=== PATIENT | male | born 1950 | race Caucasian/White ===

== ENCOUNTER 2022-11-29 14:11 | Outpatient (REF) | payer MEDICARE, OTHER, SELFPAY ==
[2022-11-29 15:08] LABS: Influenza A PCR NEGATIVE (Negative); Influenza B PCR NEGATIVE (Negative); Resp Syncy Virus RNA Qual PCR NEGATIVE (Negative); SARS COV2 PCR INHOUSE POSITIVE (Negative)
== END 2022-11-29 14:12 | disposition home or self-care (01) ==
LOC: HO.LNP 14:11
PROVIDERS: Visit Provider Physician Assistant
DX: Z20.822 Contact with and (suspected) exposure to COVID-19 (principal); B34.9 Viral infection, unspecified
CPT/HCPCS: 0241U

== ENCOUNTER 2024-12-24 16:03 | Emergency (ER) | payer MEDICARE, SELFPAY ==
--- NOTE | ~2024-12-24 | CT_ITS ---
CLINICAL HISTORY: fall CT cervical spine without contrast. COMPARISON: None FINDINGS: Normal vertebral body alignment. Grade 1 anterolisthesis of C3 on C4, degenerative. Nuchal ligament ossification. Skull base and intracranial structures appear normal. Apical pleural thickening present bilaterally. C2-C3: Anterior marginal osteophytes. C3-C4: Anterior marginal osteophytes. Uncovertebral joint hypertrophy. Facet joint arthrosis. Mild bilateral neural foraminal narrowing. C4-C5: Anterior marginal osteophytes. Uncovertebral joint hypertrophy. Mild bilateral neural foraminal narrowing. C5-C6: Anterior marginal osteophytes. Uncovertebral joint hypertrophy. Severe bilateral neural foraminal narrowing. C6-C7: Anterior marginal osteophytes. Posterior disc osteophyte complex. Uncovertebral joint hypertrophy. [id number] bilateral neural foraminal narrowing. IMPRESSION: 1. No evidence of acute injury to the cervical spine. 2. Grade 1 anterolisthesis of C3 on C4, degenerative. 3. Moderate to advanced multilevel cervical spondylosis. This document has been electronically signed by: Mark Ma MD on 12/24/2024 18:46:19
--- NOTE | ~2024-12-24 | CT_ITS ---
CLINICAL HISTORY: fall CT head without contrast. COMPARISON: None FINDINGS: Mild mucosal thickening present within the left maxillary sinus. Mastoid air cells are clear. No calvarial fracture. Atherosclerotic intracranial vasculature. No evidence for mass or mass effect. No intracranial hemorrhage or abnormal extra-axial fluid collection. Basal ganglia mineralization present bilaterally. No evidence of hydrocephalus. The basilar cisterns are patent. There are periventricular areas of low attenuation compatible with mild white matter small vessel disease. Posterior fossa appears unremarkable. IMPRESSION: 1. No acute intracranial findings. This document has been electronically signed by: Mark Ma MD on 12/24/2024 18:46:42
[2024-12-24 16:07] VITALS: BP 121/81; BP 142/78; PULSE 80; PULSE 88; RESP 17; TEMP 36.6; O2SAT 98; O2SAT 99; BMI 24.3
--- NOTE | 2024-12-24 17:03 | ECG_ITS ---
Test Reason : FALL Blood Pressure : */* mmHG Vent. Rate : 76 BPM Atrial Rate : 76 BPM P-R Int : 190 ms QRS Dur : 88 ms QT Int : 364 ms P-R-T Axes : 59 53 62 degrees QTcB Int : 409 ms Normal sinus rhythm Normal ECG No previous ECGs available Referred By: Brad Kessler Electronically Signed By: JAZZ BLACKMON
--- NOTE | 2024-12-24 17:36 | ED_ITS ---
HPI - Fall General Chief Complaint: Fall Stated Complaint: 2 lacerations behind r ear from fall Time Seen by Provider: 12/24/24 16:57 Source: patient Mode of arrival: EMS Limitations: no limitations History of Present Illness ED Provider: HPI Narrative: Patient with history of CKD hypertension hyperlipidemia coronary artery disease got up from the bed lost balance fell hitting his right side of the head to the bedside table came with superficial laceration behind the right ear active bleeding no loss of consciousness no chest pain patient is on Plavix no other injury patient does have history of CVA with right foot drop likely patient place his right foot instead of left foot 1st when he tried to get up from the bed and fell down Related Data Home Medications ?Medication ?Instructions ?Recorded ?Confirmed allopurinol 300 mg tablet 300 mg PO DAILY 11/29/22 atorvastatin 80 mg tablet 80 mg PO DAILY 11/29/22 carvedilol 12.5 mg tablet 12.5 mg PO BID 11/29/22 clopidogrel 75 mg tablet 75 mg PO DAILY 11/29/22 cholecalciferol (vitamin D3) 25 25 mcg PO DAILY 02/10/23 mcg (1,000 unit) capsule clobetasol 0.05 % topical ointment g topical DAILY 02/10/23 colchicine 0.6 mg tablet 0.6 mg PO DAILY 02/10/23 Previous Rx's ?Medication ?Instructions ?Recorded nirmatrelvir 300 mg (150 mg See Rx Instructions PO .COMPLEX 11/29/22 x2)-ritonavir 100 mg tablet,dose covid #30 ea pack (Paxlovid) Allergies Allergy/AdvReac Type Severity Reaction Status Date / Time No Known Allergies Allergy Verified 12/24/24 16:18 [No Known Allergies*] Review of Systems 2 Review of Systems: Yes all other systems are reviewed and are negative PMF Past Medical History Medical History CVA (cerebral vascular accident) Surgical History H/O cataract removal with insertion of prosthetic lens Hx of CABG Hx of colonoscopy History of four vessel coronary artery bypass graft Family History Family History Mother CAD (coronary artery disease) Father CAD (coronary artery disease) Son Psoriasis Social History Social History Alcohol intake: never Patient Tobacco Use Status: Never used Tobacco Smoked in Last 30 Days: No Use of substances other than those prescribed or required for medical reasons: No Advance Directives: No Advance Directives Information Provided: Yes Do you have a plan to hurt others: No Plan Physical Exam 2 Vital Signs: Vital Signs: Last Vital Signs Temp 98.2 F 12/24/24 19:13 Pulse 75 12/24/24 19:13 Resp 16 12/24/24 19:13 BP 121/70 12/24/24 19:13 Pulse Ox 98 12/24/24 19:13 O2 Del Method Room Air 12/24/24 19:13 BMI result Body Mass Index 24.3 Appearance: Alert. Oriented X3. No acute distress. Eyes: PERRLA, No Nystagmus ENT: Pharynx normal. Oral Mucosa moist Neck: Normal inspection. Neck supple. CVS: Normal heart rate and rhythm. Pulses normal. Respiratory: No respiratory distress. Equal air entry bilateral, no wheezing/rales/rhonchi Abdomen: Soft and nontender. Bowel sounds are present, no mass palpable, no CVA tenderness Skin: Skin warm and dry. Laceration behind right ear Extremities: No lower extremity edema. No calf tenderness Neuro: Oriented X 3. Right foot drop No sensory deficit.No cerebellar signs , cranial nerves II-XII intact HEENT: Head images: 1. Superficial laceration 1.5 cm 2. Superficial laceration 1 cm actively bleeding Medications Administered Discontinued Medications Generic Name Dose Route Start Last Admin Trade Name Ashly PRN Reason Stop Dose Admin Lidocaine/Epinephrine 10 ml 12/24/24 17:34 12/24/24 18:43 Lidocaine Hcl 1%/Epi 1:100,000 10 Ml Vial INFILTRATI 12/24/24 17:35 10 ml ONCE ONE Administration Procedures Laceration Laceration 1: Site: face (Behind right ear) Side (If applicable): right Size (cm): 2.5 Description: linear Depth: simple, single layer Local Anesthetic: lidocaine 1% and with epi Amount of anesthesia used (mL): 1 Skin layer closed with: other (Five ambrose) Medical Decision Making Medical Decision Making MDM Narrative: Patient is status post mechanical fall CT scan of the head and C-spine negative labs are stable patient does have a residual weakness of the right foot from stroke likely the cause of fall laceration was repaired using ambrose Differential Diagnosis Differential Diagnoses: The differential diagnosis associated with the presentation includes Lab Data MDM Lab Attestation statement: I reviewed the patient's lab results. 12/24/24 17:39 12/24/24 17:39 Labs: Lab Results 12/24/24 Range/Units 17:39 WBC 8.5 (4.8-10.8) X10*3/uL RBC 4.58 L (4.60-5.80) X10*6/uL Hgb 13.9 L (14.0-18.0) g/dl Hct 41.7 L (42.0-52.0) % MCV 91.0 (80.0-98.0) fL MCH 30.3 (27.0-33.0) pg MCHC 33.3 (31.0-36.0) g/dl RDW 14.6 (11.0-16.0) % Plt Count 181 (160-400) X10*3/uL MPV 9.0 L (9.4-12.4) fL Immature Gran % (Auto) 0.5 H (0.0-0.4) % Neut % (Auto) 64.7 (45-73) % Lymph % (Auto) 23.3 (20-40) % [place] % (Auto) 6.9 (2-11) % Eos % (Auto) 3.9 (0-4) % Baso % (Auto) 0.7 (0-2) % Lymph # (Auto) 2.0 (1.2-4.9) X10*3/uL [place] # (Auto) 0.6 (0.1-1.2) X10*3/uL Eos # (Auto) 0.3 (0.0-0.4) X10*3/uL Baso # (Auto) 0.1 (0.0-0.2) X10*3/uL Abs Immat Gran (auto) 0.04 H (0.00-0.03) X10*3/uL Absolute Neuts (auto) 5.5 (2.0-8.3) x10*3/uL Absolute Nucleated RBC 0.000 (0.0-0.012) X10*3/uL Nucleated RBC % (auto) 0.0 (0.0-0.2) /100WBC PT 11.5 (10.9-12.4) SEC INR 1.0 (0.9-1.1) Sodium 141 (135-145) mmol/L Potassium 4.3 (3.3-5.1) mmol/L Chloride 108 (96-108) mmol/L Carbon Dioxide 26 (22-29) mmol/L Anion Gap 11 L (12-20) BUN 27 H (9-16) mg/dL Creatinine 1.57 H (0.5-1.4) mg/dL Estim Creat Clear Calc 39.3 Estimated GFR 43 Random Glucose 107 (60-115) mg/dL Calcium 8.9 (8.4-10.2) mg/dL Magnesium 2.0 (1.6-2.6) mg/dL Total Bilirubin 0.7 (0.0-1.0) mg/dL AST 31 (5-37) U/L ALT 27 (0-40) U/L Alkaline Phosphatase 60 (39-117) U/L Troponin I High Sens 10.0 (<3.5-35.0) ng/L Total Protein 7.0 (6.5-8.0) g/dL Albumin 3.8 (3.5-5.0) g/dL Independent Interpretation I performed an independent interpretation of an: CT Scan Radiology Impression Discussion of test interpretation with radiology: I have reviewed the radiologist's reading. Radiologist Impression: No acute Discharge Plan Discharge Clinical Impression: Fall, Laceration of skin of scalp Patient Disposition: Home, Self-Care Instructions: Laceration (ED), Fall Prevention (ED) Additional Instructions: Care and cautions as advised Staple removal in 7-[address] scan of the head and cervical spine negative for any acute change Prescriptions: No Action clobetasol 0.05 % ointment topical DAILY cholecalciferol (vitamin D3) 25 mcg (1,000 unit) capsule 25 mcg PO DAILY colchicine 0.6 mg tablet 0.6 mg PO DAILY allopurinol 300 mg tablet 300 mg PO DAILY clopidogrel 75 mg tablet 75 mg PO DAILY carvedilol 12.5 mg tablet 12.5 mg PO BID atorvastatin 80 mg tablet 80 mg PO DAILY Paxlovid 300 mg (150 mg x 2)-100 mg tablets,dose pack See Rx Instructions PO .COMPLEX Qty: 30 0RF Rx Instructions: take TWO 150 mg tablets of nirmatrelvir with ONE 100 mg tablet of ritonavir twice daily for 5 days PO Hold Atorvastatin while taking Paxlovid, can resume the following day Print Language: [place]ian
[2024-12-24 17:43] VITALS: BP 142/78; PULSE 80; RESP 17; TEMP 36.6; O2SAT 98
--- NOTE | 2024-12-24 17:44 | PC.NURSE ---
5 [place] to back of head per MD Merle
[2024-12-24 17:47] LABS: MANUAL DIFF FLAG NO
[2024-12-24 17:51] LABS: Basophils Absolute Auto 0.1 X10*3/uL (0.0-0.2); Basophils Percent Auto 0.7 % (0-2); Eosinophils Absolute Auto 0.3 X10*3/uL (0.0-0.4); Eosinophils Percent Auto 3.9 % (0-4); Hematocrit 41.7 % (42.0-52.0); Hemoglobin 13.9 g/dl (14.0-18.0); Imm Gran Abs Auto 0.04 X10*3/uL (0.00-0.03); Imm Gran Pct Auto 0.5 % (0.0-0.4); Lymphocytes Percent Auto 23.3 % (20-40); Mean Corpuscular HGB Conc 33.3 g/dl (31.0-36.0); Mean Corpuscular Hemoglobin 30.3 pg (27.0-33.0); Monocytes Absolute Auto 0.6 X10*3/uL (0.1-1.2); Monocytes Percent Auto 6.9 % (2-11); Neutrophils Absolute Auto 5.5 x10*3/uL (2.0-8.3); Neutrophils Percent Auto 64.7 % (45-73); Platelet Count 181 X10*3/uL (160-400); Red Blood Count 4.58 X10*6/uL (4.60-5.80); Red Cell Distribution Width 14.6 % (11.0-16.0); White Blood Count 8.5 X10*3/uL (4.8-10.8)
[2024-12-24 17:56] LABS: Prothrombin Time 11.5 SEC (10.9-12.4)
[2024-12-24 18:16] LABS: Alanine Aminotransferase 27 U/L (0-40); Albumin Level 3.8 g/dL (3.5-5.0); Alkaline Phosphatase 60 U/L (39-117); Anion Gap 11 (12-20); Aspartate Amino Transferase 31 U/L (5-37); Bilirubin Total 0.7 mg/dL (0.0-1.0); Blood Urea Nitrogen 27 mg/dL (9-16); Calcium 8.9 mg/dL (8.4-10.2); Carbon Dioxide 26 mmol/L (22-29); Chloride 108 mmol/L (96-108); Creatinine Clr Calc Pharmacy 39.3; Estimated Glomerular Filt Rate 43; Glucose Random 107 mg/dL (60-115); Potassium 4.3 mmol/L (3.3-5.1); Sodium 141 mmol/L (135-145)
[2024-12-24] MEDS: Lidocaine HCl 1%/Epi 1:100,000 10 ML VIAL INFILTRATI (18:43)
--- OUTSIDE RECORDS SUMMARY | 2024-12-24 18:51 | XMS_ITS | Data Portability ---
Author Organization [place] Eloise beebe, [id number] [place] Address [address] [place] [address] Assessment Encounter Date Assessment Date Assessment LastModified by Organization Details LastModified Time 01/16/2024 01/16/2024 Follow-up 4 months Not available 01/23/2024 09:26:30 09/11/2024 09/11/2024 Follow-up 4 months Not available 09/11/2024 15:50:46 Plan of Treatment Reminders Order Date Submit Date Provider Last Modified By Organization Details Last Modified Time Details Appointments AWV (Medicare ) 2024 09:30A M Paulo slaughter MD Not available Not available Not available Lab CMP, serum or plasma 2023 024 [facility], [address] [place], [address], 01/17/2024 05:40:40 CBC w/ auto diff 2023 024 [facility], [address] [place], [address], 01/17/2024 05:40:41 lipid panel, serum 2023 024 [facility], [address] [place], [address], 01/17/2024 05:40:38 CBC w/ auto diff 2023 024 [facility], [address] [place], [address], 01/16/2024 14:58:11 uric acid, serum or plasma 2023 024 [place] [facility], [address] [place] [address], [address], [place], [address], 01/17/2024 05:40:39 Referral None recorded. Procedures None recorded. Surgeries None recorded. Imaging electroca rdiogram 2023 [email or web address] 2 [facility], [address] [place] [address], [address], [place], [address], 01/16/2024 15:24:09 Medication Orders clopidogr el 75 mg tablet 2023 024 [facility], [address] [place] [address], [place], [address], 09/12/2024 18:34:45 carvedilo l 12.5 mg tablet 2023 024 [facility], [address] [place] [address], [place], [address], 09/11/2024 16:02:21 atorvasta tin 80 mg tablet 2023 024 [facility], [address] [place] [address], [place], [address], 09/11/2024 16:02:21 allopurin ol 300 mg tablet 2023 024 [facility], [address] [place] [address], [place], [address], 09/11/2024 16:02:19 atorvasta tin 80 mg tablet 2023 024 [facility], [address] [place] [address], [address], 01/16/2024 14:57:12 allopurin ol 300 mg tablet 2023 024 [facility], [address] [place] [address], [address], 01/16/2024 14:57:14 fluocinon navya 0.05 % topical solution 2023 024 [facility], [address] [place] [address], [address], 01/16/2024 14:57:08 clopidogr el 75 mg tablet 2023 024 [facility], [address] [place] [address], [address], 01/16/2024 14:57:13 carvedilo l 12.5 mg tablet 2023 024 [facility], [address] [place] [address], [address], 01/16/2024 14:57:05 Patient TargetsNo targets recorded. Patient Instructions Encounter Date Encounter Id Patient Instructions Last Modified By Organization Details Last Modified Time 01/16/2024 [id number] well visit, over 65: care instructions Not available 01/16/2024 14:26:21 preventing falls : care instructions Not available 01/16/2024 14:26:21 advance directives: care instructions Not available 01/16/2024 14:26:21 To promote good health please follow these recommendations: Diet, Physical Activity and Healthy Weight: -Eat a diet low in trans and saturated fats and high in fiber, fruits and vegetables -Take 0200-0350 mg of calcium through diet and supplements -Engage in regular physical activity and weight bearing exercise -Aim to achieve and maintain ideal body mass index Tobacco and Alcohol Use: -Don't smoke or use other tobacco products -Avoid excessive alcohol intake Medications: -If you use any medications (prescriptions, zgwa-oqs-bfkqgma, supplements, herbal), always do so as directed by your health care provider -Avoid misuse of any substances in a manner that is not in accordance with appropriate use Safety: -Use seat belts whenever in the car -Use sunscreen regularly to reduce the risk of skin cancer -Test smoke detectors and CO detectors every 6 months -Remove loose rugs and use hand rails on steps and in bath Cognition: -Being intellectually engaged may benefit the brain. Lots of activities can keep your mind active. For example, read books and magazines. Play games. Take or teach a class. Learn a new skill or hobby. Work or volunteer. -People who engage in meaningful activities, like volunteering or hobbies, say they feel happier and healthier. Vaccinations: -Get your yearly influenza vaccine and follow all immunization recommendations outlined in your personal wellness plan. [email or web address] Not available 01/16/2024 13:43:22 Reason for Referral None Reported. Results Created Date Observation Date Name Description Value Unit Range Abnormal Flag Note LastModifiedBy Organization Detail LastModifiedTime 01/16/20 24 01/17/2024 LIPID PANEL , STAND GABY cholesterol, total 135 mg/dL <200 normal Not Available [facility] [address], [address], 01/17/2024 05:40:38 01/16/20 24 01/17/2024 LIPID PANEL , STAND GABY HDL cholesterol 52 mg/dL > or = 40 normal Not Available [facility] [address], [place], [address], 01/17/2024 05:40:38 01/16/20 24 01/17/2024 LIPID PANEL , STAND GABY triglyceride s 142 mg/dL <150 normal Not Available [facility] [address], [address], 01/17/2024 05:40:38 01/16/20 24 01/17/2024 LIPID PANEL , STAND GABY LDL-choleste rol 60 mg/dL _(devante c) normal Refer ence range : <100 Shanda able range <100 mg/dL for prima ry preve ntion ; <70 mg/dL for patie nts with CHD or diabe tic patie nts with > or = 2 CHD risk facto rs. LDL-C is now calcu lated using the [facility] kins calcu latio n, which is a valid ated novel metho d provi shahla evelyne r accur acy than the Fried delbert equat ion in the estim ation of LDL-C . Bonnie slaughter SS et al. KEYANNA. 2013; 310(1 9): 2061- 2068 (http ://ed ucati on.[employer] Marcy nesbittNimaya. [employer]/f aq/FA Q164) Not Available [facility] [address], [place], [address], 01/17/2024 05:40:38 01/16/20 24 01/17/2024 LIPID PANEL , STAND GABY chol/HDLC ratio 2.6 (calc ) <5.0 normal Not Available [facility] [address], [place], [address], 01/17/2024 05:40:38 01/16/20 24 01/17/2024 LIPID PANEL , STAND GABY non HDL cholesterol 83 mg/dL _(devante c) <130 normal For patie nts with diabe kamar plus 1 major ASCVD risk facto r, treat ing to a non-H DL-C goal of <100 mg/dL (LDL- C of <70 mg/dL ) is conssherrell sola pepaolai c optio n. Not Available [facility] [address], [place], [address], 01/17/2024 05:40:38 01/16/20 24 01/17/2024 URIC ACID uric acid 4.9 mg/dL 4.0-8. 0 normal Thera peuti c targe t for gout patie nts: <6.0 mg/dL Not Available [facility] [address], [place], [address], 01/17/2024 05:40:39 01/16/20 24 01/17/2024 COMPR EHENS ZEE METAB OLIC PANEL glucose 95 mg/dL 65-139 normal Non-f astin g refer ence inter jaquelin Not Available [facility] [address], [place], [address], 01/17/2024 05:40:40 01/16/20 24 01/17/2024 COMPR EHENS ZEE METAB OLIC PANEL urea nitrogen (BUN) 27 mg/dL 7-25 high Not Available [facility] [address], [place], [address], 01/17/2024 05:40:40 01/16/20 24 01/17/2024 COMPR EHENS ZEE METAB OLIC PANEL creatinine 1.57 mg/dL 0.70-1 .28 high Not Available [facility] [address], [place], [address], 01/17/2024 05:40:40 01/16/20 24 01/17/2024 COMPR EHENS ZEE METAB OLIC PANEL eGFR 46 mL/mi n/1.7 3m2 > or = 60 low Not Available [facility] [address], [place], [address], 01/17/2024 05:40:40 01/16/20 24 01/17/2024 COMPR EHENS ZEE METAB OLIC PANEL BUN/creatini ne ratio 17 (calc ) 6-22 normal Not Available [facility] [address], [place], [address], 01/17/2024 05:40:40 01/16/20 24 01/17/2024 COMPR EHENS ZEE METAB OLIC PANEL sodium 136 mmol/ L 135-14 6 normal Not Available [facility] [address], [place], [address], 01/17/2024 05:40:40 01/16/20 24 01/17/2024 COMPR EHENS ZEE METAB OLIC PANEL potassium 4.7 mmol/ L 3.5-5. 3 normal Not Available [facility] [address], [place], [address], 01/17/2024 05:40:40 01/16/20 24 01/17/2024 COMPR EHENS ZEE METAB OLIC PANEL chloride 102 mmol/ L 98-110 normal Not Available [facility] [address], [place], [address], 01/17/2024 05:40:40 01/16/20 24 01/17/2024 COMPR EHENS ZEE METAB OLIC PANEL carbon dioxide 27 mmol/ L 20-32 normal Not Available [facility] [address], [place], [address], 01/17/2024 05:40:40 01/16/20 24 01/17/2024 COMPR EHENS ZEE METAB OLIC PANEL calcium 10.0 mg/dL 8.6-10 .3 normal Not Available [facility] [address], [place], [address], 01/17/2024 05:40:40 01/16/20 24 01/17/2024 COMPR EHENS ZEE METAB OLIC PANEL protein, total 7.3 g/dL 6.1-8. 1 normal Not Available [facility] [address], [place], [address], 01/17/2024 05:40:40 01/16/20 24 01/17/2024 COMPR EHENS ZEE METAB OLIC PANEL albumin 4.6 g/dL 3.6-5. 1 normal Not Available [facility] [address], [place], [address], 01/17/2024 05:40:40 01/16/20 24 01/17/2024 COMPR EHENS ZEE METAB OLIC PANEL globulin 2.7 g/dL_ (calc ) 1.9-3. 7 normal Not Available [facility] [address], [place], [address], 01/17/2024 05:40:40 01/16/20 24 01/17/2024 COMPR EHENS ZEE METAB OLIC PANEL albumin/glob ulin ratio 1.7 (calc ) 1.0-2. 5 normal Not Available [facility] [address], [place], [address], 01/17/2024 05:40:40 01/16/20 24 01/17/2024 COMPR EHENS ZEE METAB OLIC PANEL bilirubin, total 1.3 mg/dL 0.2-1. 2 high Not Available [facility] [address], [place], [address], 01/17/2024 05:40:40 01/16/20 24 01/17/2024 COMPR EHENS ZEE METAB OLIC PANEL alkaline phosphatase 62 U/L 35-144 normal Not Available [facility] [address], [place], [address], 01/17/2024 05:40:40 01/16/20 24 01/17/2024 COMPR EHENS ZEE METAB OLIC PANEL AST 22 U/L 10-35 normal Not Available [facility] [address], [place], [address], 01/17/2024 05:40:40 01/16/20 24 01/17/2024 COMPR EHENS ZEE METAB OLIC PANEL ALT 17 U/L 9-46 normal Not Available [facility] [address], [place], [address], 01/17/2024 05:40:40 01/16/20 24 01/17/2024 CBC (INCL UDES DIFF/ PLT) white blood cell count 7.9 thous and/u L 3.8-10 .8 normal Not Available [facility] [address], [place], [address], 01/17/2024 05:40:41 01/16/20 24 01/17/2024 CBC (INCL UDES DIFF/ PLT) red blood cell count 4.95 omar on/uL 4.20-5 .80 normal Not Available [facility] [address], [place], [address], 01/17/2024 05:40:41 01/16/20 24 01/17/2024 CBC (INCL UDES DIFF/ PLT) hemoglobin 14.8 g/dL 13.2-1 7.1 normal Not Available [facility] [address], [place], [address], 01/17/2024 05:40:41 01/16/20 24 01/17/2024 CBC (INCL UDES DIFF/ PLT) hematocrit 44.5 % 38.5-5 0.0 normal Not Available [facility] [address], [place], [address], 01/17/2024 05:40:41 01/16/20 24 01/17/2024 CBC (INCL UDES DIFF/ PLT) MCV 89.9 fL 80.0-1 00.0 normal Not Available [facility] [address], [place], [address], 01/17/2024 05:40:41 01/16/20 24 01/17/2024 CBC (INCL UDES DIFF/ PLT) MCH 29.9 pg 27.0-3 3.0 normal Not Available [facility] [address], [place], [address], 01/17/2024 05:40:41 01/16/20 24 01/17/2024 CBC (INCL UDES DIFF/ PLT) MCHC 33.3 g/dL 32.0-3 6.0 normal Not Available [facility] [address], [place], [address], 01/17/2024 05:40:41 01/16/20 24 01/17/2024 CBC (INCL UDES DIFF/ PLT) RDW 14.0 % 11.0-1 5.0 normal Not Available [facility] [address], [place], [address], 01/17/2024 05:40:41 01/16/2001/17/2024 CBC (INCL UDES DIFF/ PLT) platelet count 239 thous and/u L 140-40 0 normal Not Available [facility] [address], [place], [address], 01/17/2024 05:40:41 01/16/20 24 01/17/2024 CBC (INCL UDES DIFF/ PLT) MPV 9.7 fL 7.5-12 .5 normal Not Available [facility] [address], [place], [address], 01/17/2024 05:40:41 01/16/2001/17/2024 CBC (INCL UDES DIFF/ PLT) absolute neutrophils 4408 cells /uL 1500-7 800 normal Not Available [facility] [address], [place], [address], 01/17/2024 05:40:41 01/16/20 24 01/17/2024 CBC (INCL UDES DIFF/ PLT) absolute lymphocytes 2362 cells /uL 850-39 00 normal Not Available [facility] [address], [place], [address], 01/17/2024 05:40:41 01/16/20 24 01/17/2024 CBC (INCL UDES DIFF/ PLT) absolute monocytes 664 cells /uL 200-95 0 normal Not Available [facility] [address], [place], [address], 01/17/2024 05:40:41 01/16/20 24 01/17/2024 CBC (INCL UDES DIFF/ PLT) absolute eosinophils 379 cells /uL 15-500 normal Not Available [facility] [address], [place], [address], 01/17/2024 05:40:41 01/16/20 24 01/17/2024 CBC (INCL UDES DIFF/ PLT) absolute basophils 87 cells /uL 0-200 normal Not Available [facility] [address], [place], [address], 01/17/2024 05:40:41 01/16/20 24 01/17/2024 CBC (INCL UDES DIFF/ PLT) neutrophils 55.8 % normal Not Available [facility] [address], [place], [address], 01/17/2024 05:40:41 01/16/20 24 01/17/2024 CBC (INCL UDES DIFF/ PLT) lymphocytes 29.9 % normal Not Available [facility] [address], [place], [address], 01/17/2024 05:40:41 01/16/20 24 01/17/2024 CBC (INCL UDES DIFF/ PLT) monocytes 8.4 % normal Not Available [facility] [address], [place], [address], 01/17/2024 05:40:41 01/16/20 24 01/17/2024 CBC (INCL UDES DIFF/ PLT) eosinophils 4.8 % normal Not Available [facility] [place] [address], [place], [address], 01/17/2024 05:40:41 01/16/20 24 01/17/2024 CBC (INCL UDES DIFF/ PLT) basophils 1.1 % normal Not Available [facility] [address], [place], [address], 01/17/2024 05:40:41 01/16/20 24 elect rocar diogr am No observ ation record ed. [email or web address] [email or web address], [address], 01/16/2024 13:55:31 01/18/20 24 elect rocar diogr am No observ ation record ed. BARCODE [email or web address] [address] [place] [address], [place], [address], 01/18/2024 11:49:11 Result Notes None recorded. Problems Name Problem SNOMED Code Status Onset Date Resolution Date Notes Provider Name and Address Organization Details Recorded Time Heart murmur 18793865 Active 2014 Cardiac murmur Not Available [facility] 3 06:53:57 Arthriti s of left knee 20683353507 86951 Active 2018 Arthriti s of knee, left Not Available [facility] 3 06:53:57 Abnormal gait 99538985 Active 2014 Abnormal gait Not Available [facility] 3 06:53:57 Acute posthemo rrhagic anemia 349722306 Completed 201506/20/2023 Acute blood loss anemia Paulo Godfrey MD [address] [place] [address], [address], [place], [address] , [place] [facility] 3 10:31:32 Seborrhe ic dermatit is 76485187 Active 2014 Dermatit is seborrhe ica Not Available [facility] 3 06:53:57 Hyperten sive disorder 62174651 Active 2014 BP (high blood pressure ) Not Available [facility] 3 06:53:57 Acute injury of kidney 77115391998 553375 Completed 201506/20/2023 Acute kidney injury Paulo Godfrey MD [address] [place] [address], [address] [facility], [place], [address] , [place] [facility] 3 10:31:32 Backache 310364497 Completed 201406/20/2023 Back ache Paulo Godfrey MD [address] [place] [address], [address] [place] [address], [place], [address] , [place] [facility] 3 10:31:32 Muscle weakness of limb 047337902 Completed 201401/23/2024 Leg weakness Paulo Godfrey MD [address] [place] [address], [address] [place] [address], [place], [address] , [place] [facility] 4 09:42:29 Multi vessel coronary artery disease 724026227 Active 2016 CAD, multiple vessel - Overview : Formatti ng of this note might be differen t from the original . Formatti ng of this note might be differen t from the original . CABG x 4 Not Available [facility] 3 06:53:58 Patient encounte r status 326021374 Completed 201401/23/2024 Routine general medical examinat ion at a health care facility Paulo Godfrey MD [address] [place] [address], [address] [facility], [place], [address] , [place] - [facility] 4 09:42:29 Abnormal renal function 25812647 Active 2014 Abnormal kidney function Not Available [facility] 3 06:53:58 Adhesive capsulit is of shoulder 057273581 Completed 201401/23/2024 Adhesive capsulit is of shoulder Paulo Godfrey MD [address] [place] [address], [address] [place] [address], [place], [address] , [place] [facility] 4 09:42:29 Chronic tophaceo us gout 50872321 Active 2016 Tophaceo us gout - Overview : Formatti ng of this note might be differen t from the original . Formatti ng of this note might be differen t from the original . On allopuri nol since 2017, but patient held it for a year in 2019 Not Available [facility] 3 06:53:58 History of coronary artery bypass grafting 570612655 Active 2015 S/P CABG (coronar y artery bypass graft) Not Available [facility] 3 06:53:58 Chronic kidney disease stage 3 657434611 Active 2019 CKD (chronic kidney disease) stage 3, GFR 30-59 ml/min Not Available [facility] 3 06:53:59 [place] - lesion 812379237 Completed 201401/23/2024 Vicente Godfrey MD [address] [place] [address], [address] Floor, [place], [address] , [place] - [place] [facility] 4 09:42:29 Hyperlip idemia 12471603 Active 2014 HLD (hyperli pidemia) Not Available [facility] 3 06:53:59 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 Formatti ng of this note might be differen t from the original . 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 271821953 Completed 201401/23/2024 Cerebral thrombos is with cerebral infarcti on Paulo Godfrey MD [address] [place] [address], [facility] Floor, [place], [address] , [place] - [place] [facility] 4 09:42:29 Allergic disposit ion 989479817 Completed 202201/23/2024 Other allergy, initial encounte r Paulo Godfrey MD [address] [place] [address], [address] [place] [address], [place], [address] , [place] [facility] 4 09:42:29 Problem 89440901 Completed 01/23/2024 No known active problems Paulo Godfrey MD [address] [place] [address], [address] [place] [address], [place], [address] , [place] - [place] [facility] 4 09:42:29 Problem Notes None recorded. Procedures Surgical History Date Name Laterality Status Provider Name and Address Organization Details Recorded Time 01/16/20 24 Advance Care Planning Consultation completed Paulo Godfrey MD [address] [place] [address], [address] [place] [address], [place], [address], [place] [facility] 01/23/2024 09:45:11 01/16/20 24 AWV - safety evaluation completed Stephanie Melendrez-Kiley or CT - [facility] 01/16/2024 13:43:22 01/16/20 24 AWV - male prevention plan completed Paulo Godfrey MD [address] [place] [address], [address] [place] [address], [place], [address], [place] - [place] [facility] 01/23/2024 09:32:15 07/01/20 16 Cabg vein four completed Paulo Godfrey MD [address] [place] [address], [address] [place] [address], [place], [address], [place] - [place] [facility] 01/18/2024 09:43:47 Imaging Results Imaging Date Name Status LastModified by Organization Details LastModified Time 01/16/2024 electrocardiogram completed [email or web address] Ct_ctcm a_im_[address], [place], [address], 01/16/2024 13:55:31 01/18/2024 electrocardiogram completed BARCODE [facility] a[facility]im_[address], [place], [address], 01/18/2024 11:49:11 Procedure Notes None recorded. Medical Equipment None Reported. Medications Name Sig Start Date Stop Date Status Note LastModified by Organization Details LastModified Time losartan 50 mg tablet TAKE 1 TABLET BY MOUTH EVERY DAY DIRECTED 07/06 completed Not Available Not Available Not Available atorvastati n 80 mg tablet TAKE 1 TABLET BY MOUTH ONCE DAILY active Not Available Not Available No t Available carvedilol 12.5 mg tablet Take 1 tablet (12.5 mg total) by mouth 2 (two) times a day with meals. 2023 active Not Available Not Available Not Avai lable pravastatin 40 mg tablet TAKE 1 TABLET BY MOUTH EVERY DAY 07/06 completed Not Available Not Available Not Available prednisone 20 mg tablet Take 3 tablets (60 mg total) by mouth daily for 3 days, THEN 2 tablets (40 mg total) daily for 3 days, THEN 1 tablet (20 mg total) daily for 3 days. 04/03 completed Not Available Not Available Not Available clopidogrel 75 mg tablet TAKE 1 TABLET BY MOUTH ONCE DAILY active Not Available Not Available No t Available amlodipine 5 mg tablet TAKE 1 TABLET BY MOUTH EVERY DAY DIRECTED 07/06 completed Not Available Not Available Not Available aspirin 81 mg tablet,stas yed release Take 1 tablet (81 mg total) by mouth daily. 07/06 completed Not Available Not Available Not Available acetaminoph en 500 mg tablet Take 2 tablets (1,000 mg total) by mouth every 6 (six) hours as needed for pain. 04/14 completed Not Available Not Available Not Available oxycodone-a cetaminophe n 5 mg-325 mg tablet Take 1 tablet by mouth every 6 (six) hours as needed for pain. 12/07 completed Not Available Not Available Not Available methocarbam ol 750 mg tablet Take 1 tablet (750 mg total) by mouth every night at bedtime as needed. 09/06 completed Not Available Not Available Not Available pantoprazol e 40 mg tablet,stas yed release Take 1 tablet (40 mg total) by mouth every morning. 10/02 completed Not Available Not Available Not Available docusate sodium 100 mg capsule Take 100 mg by mouth 2 (two) times a day. 10/02 completed Not Available Not Available Not Available betamethaso ne, augmented 0.05 % topical ointment APPLY OINTMENT TOPICALLY TO AFFECTED AREA(S) ONCE DAILY. DO NOT EXCEED 45 GRAMS PER WEEK active Not Available Not Available No t Available aspirin 81 mg chewable tablet Chew 1 tablet (81 mg total) by mouth daily. 07/27 completed Not Available Not Available Not Available allopurinol 300 mg tablet TAKE 1 TABLET BY MOUTH ONCE DAILY 2023 active Not Available Not Available Not Avai lable mirtazapine 15 mg tablet Take 1 tablet (15 mg total) by mouth every night at bedtime. 01/08 completed Not Available Not Available Not Available clobetasol 0.05 % topical ointment Apply topically 2 (two) times a day. 2022 active Not Available Not Available Not Avai lable fluocinonid e 0.05 % topical solution APPLY SOLUTION TOPICALLY TO AFFECTED AREA(S) TWO TIMES A DAY active Not Available Not Available No t Available colchicine 0.6 mg tablet Take 1 tablet by mouth daily. 07/27 completed Not Available Not Available Not Available ketoconazol e 2 % topical cream APPLY TO FACE TWICE DAILYFOR MAINTENAN CE OF PSORIASIS /RUIZ DERM active Not Available Not Available No t Available clobetasol 0.05 % scalp solution APPLY AND GENTLY MASSAGE INTO AFFECTED AREAS TWICE A DAY 07/27 completed Not Available Not Available Not Available fluticasone propionate 50 mcg/actuati on nasal spray,suspe nsion spray/emory ly 2 sprays in each nostril daily. 06/29 completed Not Available Not Available Not Available naproxen 500 mg tablet Take 500 mg by mouth 2 (two) times a day with meals. 06/14 completed Not Available Not Available Not Available metoprolol tartrate 25 mg tablet Take 0.5 tablets (12.5 mg total) by mouth 2 (two) times a day. 07/27 completed Not Available Not Available Not Available cholecalcif amaury (vitamin D3) 25 mcg (1,000 unit) tablet Take 2 tablets by mouth daily. 2020 active Not Available Not Available Not Avai lable febuxostat 40 mg tablet Take 1 tablet (40 mg total) by mouth daily. 07/27 completed Not Available Not Available Not Available Paxlovid 300 mg (150 mg x 2)-100 mg tablets in a dose pack TAKE 3 TABLETS TOGETHER (TWO 150 MG NIRMATREL VIR TABLETS AND ONE 100 MG RITONAVIR TABLET) BY MOUTH TWICE DAILY FOR 5 DAYS. HOLD ATORVASTA TIN WHILE TAKING PAXLOVID, CAN RESUME THE FOLLOWING DAY 06/20 completed Not Available Not Available Not Available molnupiravi r 200 mg capsule (EUA) Take 4 capsules (800 mg total) by mouth every 12 (twelve) hours for 5 days. Swallow capsule whole. Do NOT open, break, or crush. 12/05 completed Not Available Not Available Not Available Vitals Date Recorded Body height Body mass index (BMI) Body weight Heart rate Systolic blood pressure Diastolic blood pressure Provider Name and Address Organization Details Last Updated DateTime 4 170.2 cm 24.9 kg/m2 46586.1 9 g 74 /min 130 mm[Hg] 74 mm[Hg] Richa Gonzalez [facility] 4 13:55:21 Date Recorded Body height Body mass index (BMI) Body weight Heart rate Oxygen saturation Oxygen saturation in Arterial blood by Pulse oximetry Systolic blood pressure Diastolic blood pressure Provider Name and Address Organization Details Last Updated DateTime 4 170.2 cm 24.9 kg/m2 73868.4 7 g 74 /min 96 % 96 % 124 mm[Hg] 78 mm[Hg] Tejas Keller [facility] 4 15:48:44 Date Recorded Body height Body mass index (BMI) Body weight Heart rate Oxygen saturation Oxygen saturation in Arterial blood by Pulse oximetry Systolic blood pressure Diastolic blood pressure Provider Name and Address Organization Details Last Updated DateTime 3 170.2 cm 24.5 kg/m2 09572.8 5 g 75 /min 95 % 95 % 138 mm[Hg] 72 mm[Hg] Tejas Keller [place] - [place] [facility] 3 10:13:29 Social History None recorded. Functional Status None recorded. Mental Status None recorded. Family History Nothing Reported Notes:Problem: Hypertension Relation: Natural mother Medical History No medical history recorded. Immunizations Vaccine Type Date Status Note Provider Nam e and Address Organization Details Recorded Time Td (adult), 2 Lf tetanus toxoid, preservative free, adsorbed 7 completed Not Available [facility] 02/26/2023 01:52:08 Tdap 7 completed Not Available [facility] 02/26/2023 01:52:09 Pneumococcal conjugate PCV 13 9 completed Not Available [facility] 02/26/2023 01:52:12 Influenza, high-dose, trivalent, PF 0 completed Not Available [facility] 02/26/2023 01:52:12 COVID-19, mRNA, LNP-S, PF, 30 mcg/0.3 mL dose 1 completed Not Available [facility] 02/26/2023 01:52:12 COVID-19, mRNA, LNP-S, PF, 30 mcg/0.3 mL dose 1 completed Not Available [facility] 02/26/2023 01:52:13 Past Encounters Encounter ID Performer Location Encounter Start Date Encounter Closed Date Diagnosis/Indication Diagnosis SNOMED-CT Code Diagnosis ICD10 Code Diagnosis Note [id number] Paulo Godfrey MD [facility] [id number] 06/20/2023 10:06:17 06/20/2023 10:32:24 Hyperlipidemia 95274714 E78.5 Stable, continue atorvastat in 80 mg daily. Hypertensive disorder 38 832395 I10 Stable, stable, continue carvedilol 12.5 mg daily. Chronic ki dney disease stage 3 755466389 N18.30 Stable, continue to monitor. 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 Reports almost done. Continue Krystexxa infusion and follow-up with Dr. Leo. Foot-drop 3727382 M21.37 9 Reports getting worse when not exercising . Advised to continue treadmill exercises. He is able to walk without assistance . History of cerebrovascular accident with residual deficit 669037660 I69.30 Stable, continue to monitor. Multi vess el coronary artery disease 307820823 I25.10 Stable, continue clopidogre l 75 mg daily and atorvastat in 80 mg daily. Bilateral cramp of muscle of lower limbs [id number] 5482188 R25.2 Advised to take magnesium 400 mg daily. Advised to call if worse or not getting improved in 3 to 4 weeks. [id number] Paulo Godfrey MD [facility] [place] [address] 01/16/2024 13:39:12 01/16/2024 15:00:22 Adult health examination 109526625 Z00.00 Colonoscop y done by Dr. Jordan 08/15/2018 in [facility]. Findings normal. No further colonoscop y needed because of his age.Tdap given in [id number] given 2019Advise d to get Shingrix vaccine, RSV vaccine and Prevnar 20 at the local pharmacy. Hypertensive disorder 38 600575 I10 Stable, stable, continue carvedilol 12.5 mg daily. Hyperlipidemia 30055561 E78.5 Stable, continue atorvastat in 80 mg daily. Foot-drop 7962660 M21.37 9 He is still unstable on his gait. Will refer for physical therapy. May need a brace. Essential hypertension 31984856 I10 As above Psoriasis 4985571 L40.9 Stable, will refill fluocinoni de topical solution. Chronic ki dney disease stage 3 570330387 N18.30 Stable, continue to monitor. 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 Reports almost done. Continue Krystexxa infusion and follow-up with Dr. Leo. History of cerebrovascular accident with residual deficit 819155380 I69.30 Stable, continue to monitor. History of coronary artery bypass grafting 718439680 Z95.1 Hemodynami magen stable. Continue to monitor. Multi vess el coronary artery disease 018819387 I25.10 Stable, continue clopidogre l 75 mg daily and atorvastat in 80 mg daily. [id number] Paulo Godfrey MD [facility] [place] [address] 09/11/2024 15:04:45 09/11/2024 16:06:52 Foot-drop 1417737 M21.379 He is stable at this time. He is walking without a cane. Reports no recent falls. Advised to continue exercises. Hyperlipidemia 90525211 E78.5 Stable, continue atorvastat in 80 mg daily. Psoriasis 4244210 L40.9 Stable, continue fluocinoni de topical solution. Chronic ki dney disease stage 3 303391434 N18.30 Stable, continue to monitor. 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 Continue allopurino l 300 mg once a day. Will continue to monitor. History of cerebrovascular accident with residual deficit 326741380 I69.30 Residual deficits are stable at this time. Continue to monitor. Multi vess el coronary artery disease 311293271 I25.10 Stable, continue clopidogre l 75 mg daily and atorvastat in 80 mg daily. History of coronary artery bypass grafting 350270177 Z95.1 Hemodynami magen stable. Continue to monitor. Continue medication s and lifestyle modificati ons. Essential hypertension 82409873 I10 Stable, continue carvedilol 12.5 mg twice daily. Health Concerns Section Related Observation LastModified by Organization Detai ls LastModified Time None Recorded Concern Status LastModified by Organization Details LastModified Time None Recorded Advance Directives Directive None Recorded Payers Encounter Date Sequence Insurance Name Policy Number Policy Ley Covered Member ID Ley Member ID Guarantor Name 06/20/2023 1 [facility] (MEDICARE SUPPLEMENT) [place] [id number] [place] 06/20/2023 1 MEDICARE B-CT: NGS [place] [id number] [place] 01/16/2024 1 [employer] (MEDICARE REPLACEMENT/A DVANTAGE - PPO) [place] [id number] [place] 09/11/2024 1 [employer] (MEDICARE REPLACEMENT/A DVANTAGE - PPO) [place] [id number] [place] Notes Date Note Type Note Provider Name and Address Organization Details Recorded Time 06/20/2023 text/html Reports no new complaints or symptoms at this time. He is still undergoing infusion for his tophaceous gout. Reports improvement in uric acid and improvement in the size of tophi. Reports occasional falls when not conscious about his right foot drop and when he stands up quickly. Reports he noticed that foot drop getting worse when not doing any exercise. No new neurological deficit. No polyuria, polydipsia or nocturia. No chest pain, shortness of breath, dyspnea on exertion orthopnea. Compliant with medications. No side effects of medications. Paulo Godfrey MD [address] [place] [address], [phone], [place] [employer] [place] 06/20/2023 14:02:16 01/16/2024 text/html Reports no new complaints or symptoms at this time. He has issues well right foot drop which she reports getting worse lately. He stopped doing physical therapy. Reports history of fall this year. Reports no chest pain, shortness of breath, dyspnea on exertion orthopnea. He has very mild right-sided weakness. Reports compliant with his medications. He is not doing any regular exercise. He is compliant with his diet. He lives with his sister. Paulo Godfrey MD [address] [place] [address], [address] [place] [address], [phone], [place] [employer] [place] 01/23/2024 09:48:18 09/11/2024 text/html Reports no new complaints or symptoms at this time. Right foot drop and stabilized with exercises. Reports no recent falls.Reports no chest pain, shortness of breath, dyspnea on exertion orthopnea. He has very mild right-sided weakness. Reports compliant with his medications. He is not doing any regular exercise. He is compliant with his diet. Paulo Godfrey MD [address] [place] [address], [phone], [place] [facility] [place] 09/12/2024 18:38:33
--- OUTSIDE RECORDS SUMMARY | 2024-12-24 18:51 | XMS_ITS | Clinical Summary ---
Author Organization [facility] Address [address] [place] [address] Care Team Providers Care Quality Head Name Role Phone Paulo Godfrey MD Primary Care Provider [phone] Allergies Active Allergy Reactions Criticality Noted Date Comments No Active Allergies 05/29/2015 Medications Medication Sig Dispensed Refills Start Date End Date Status Cholecalciferol 25 MCG (1000 UT) tablet Take 2 tablets by mouth daily. 0 06/17/2021 Active atorvastatin (LIPITOR) tablet 80 mg Take 1 tablet (80 mg total) by mouth daily. 90 tablet 3 12/07/2022 Active carvedilol (COREG) 12.5 MG tablet Take 1 tablet (12.5 mg total) by mouth 2 (two) times a day with meals. 180 tablet 3 12/07/2022 Active clopidogrel (PLAVIX) 75 MG tablet Take 1 tablet (75 mg total) by mouth daily. 90 tablet 3 12/07/2022 Active clobetasol (TEMOVATE) 0.05 % ointment Apply topically 2 (two) times a day. 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 07/27/2021 CKD (chronic kidney disease) stage 3, GFR 30-59 ml/min 05/01/2020 Arthritis of knee, left 03/28/2019 Tophaceous gout 08/08/2017 Overview: On allopurinol since 2017, but patient held it for a year in 2020 Psoriasis 06/27/2017 Right sided weakness 03/23/2017 History of cerebrovascular a ccident (CVA) with residual deficit 03/23/2017 Overview: residual right sided weakness CAD, multiple vessel 03/23/2017 Overview: CABG x 4 S/P CABG (coronary artery bypass graft) 07/28/20 16 Acute blood loss anemia 07/01/2016 Acute kidney injury 07/01/2016 Lumbar radiculopathy 05/29/2015 Abnormal kidney function 05/29/2015 Adhesive capsulitis of shoulder 05/29/2015 Routine general medical exam ination at a health care facility 05/29/2015 Abnormal gait 05/29/2015 Cardiac murmur 05/29/2015 HLD (hyperlipidemia) 05/29/2015 BP (high blood pressure) 05/29/2015 Back ache 05/29/2015 [place] 05/29/2015 Dropfoot 05/29/2015 Leg weakness 05/29/2015 Dermatitis seborrheica 05/29/2015 Cerebral thrombosis with cerebral infarction Resolved Problems Problem Noted Date Diagnosed Date Resolved Date Metabolic acidosis 07/01/2016 Hypocalcemia 07/01/2016 02/01/2022 Hypophosphatemia 07/01/2016 02/01/2022 LBP (low back pain) 05/29/2015 02/02/20 22 Immunizations Name Administration Dates Next Due Covid-19 (Pfizer) Dilution Required 03/12/2021,0 02/19/2021 Influenza Trivalent (Fluzone High Dose) 0.7 mL (65yrs &>) 10/12/2020 Pneumococcal Conjugate PCV13 2019 Td (Adult) Decavac 04/01/2017 Tdap 04/01/2017 Family History Medical History Relation Name Comments Hypertension Mother Relation Name Status Comments Mother Social History Tobacco Use Types Packs/Day Years Used Date Smoking Tobacco: Never Smokeless Tobacco: Never Tobacco Cessation:Counseling Given: Not Answered Alcohol Use Standard Drinks/Week Comments No 0 (1 standard drink = 0.6 oz pur e alcohol) ocassional Sex and Gender Information Value Date Recorded Sex Assigned at Not on file Gender Identity Not on file Sexual Orientation Not on file Job Start Date Occupation Industry Not on file Not on file Not on file Last Filed Vital Signs Vital Sign Reading Time Taken Comments Blood Pressure 152/78 07/06/2023 11:44 AM EDT Pulse 74 07/06/2023 11:44 AM EDT Temperature 36.4 ??C (97.6 ??F) 06/21/2023 8:43 AM ED T Respiratory Rate 16 06/21/2023 8:43 AM EDT Oxygen Saturation 96% 06/21/2023 8:43 AM EDT Inhaled Oxygen Concentration - - Weight 71.2 kg (157 lb) 07/06/2023 11:44 AM EDT Height 170.2 cm (5' 7 ) 07/06/2023 11:44 AM EDT Body Mass Index 24.59 07/06/2023 11:44 AM EDT Plan of Treatment Health Maintenance Due Date Last Done Comments Hepatitis C Screening 1950 Shingrix-Zoster Vaccine (1 of 2) 1999 Colon Cancer Screening (Colonoscopy) 12/15/2022 12/15/2012 Depression Screening 10/14/2023 10/14/2022, 10/14/2022, 10/02/2021, Additional history exists Fall Risk Assessment 10/14/2023 10/14/2022, 10/02/2021, 10/02/2021, Additional history exists Preventative Health Evaluation 10/14/2023 10/14/2022, 10/02/2021, 10/02/2021, Additional history exists COVID-19 Vaccine ( season) 2024 10/13/2021, 03/12/2021, 02/19/2021 Influenza Vaccine (#1) 2024 10/12/2020, 2015 RSV Adult > 60+ Yrs or (1 - 1-dose 75+ series) 2024 DTap / Tdap / Td Discontinued 04/01/2017, 04/01/2017 Pneumococcal Vaccine Discontinued 2019 Hepatitis B Vaccines Aged Out No long er eligible based on patient's age to complete this topic RSV Ped < 20 months Aged Out No longe r eligible based on patient's age to complete this topic Medical Devices Explanted Type [employer] Bag[employer] Device Identifier Shelf Expiration Date Model / Serial / Lot Cellulose Surgicel 2x1in Absorbable Hemostatic Agent - [id number] - [id number] Explanted:Qty: 1 on 07/01/2016 by [place] Miranda [place] [facility] [place] [facility] Hemostatic Agent N/A: Heart [employer] 07/30/2017 1961 / / [id number] Cellulose Surgicel 14x2in Absorbable Hemostatic Agent - [id number] - [id number] Explanted:Qty: 1 on 07/01/2016 by Graeme Miranda [place] [facility] Hemostatic Agent N/A: Heart [employer] 02/28/20201950 / / [id number] Advance Directives For more information, please contact: [phone] Latest Code Status on File Code Status Date Activated Date Inactivated Comments Full Code 06/30/2016 12:58 PM 07/07/2016 12:55 AM This code status was ascertained in the following way: per unit protocol. Code Status History Code Status Date Activated Date Inactivated Comments Full Code 06/29/2016 12:31 PM 06/30/2016 12:58 PM Thi s code status was ascertained in the following way: per unit protocol. Care Teams Quality Head Relationship Specialty Start Date End Date Paulo Godfrey MD PCP - General Internal Medicine 07/13/21
--- OUTSIDE RECORDS SUMMARY | 2024-12-24 18:51 | XMS_ITS ---
Author Name [facility] Organization Unknown History of Medication Use Medication Directions Dispensed Refills Start Date End Date Stat acetaminophen 500 mg tablet Take 2 tablets (1,000 mg total) by mouth every 6 (six) hours as needed for pain. 12/05/2015 6 completed ketoconazole 2 % topical cream APPLY TO FACE TWICE DAILYFOR MAINTENANCE OF PSORIASIS/RUIZ DERM active cholecalciferol (vitamin D3) 25 mcg (1,000 unit) tablet Take 2 tablets by mouth daily. 06/17/2021 active aspirin 81 mg chewable tablet Chew 1 tablet (81 mg total) by mouth daily. 07/04/2016 1 completed oxycodone-acetaminoph en 5 mg-325 mg tablet Take 1 tablet by mouth every 6 (six) hours as needed for pain. 12/06/2016 8 completed docusate sodium 100 mg capsule Take 100 mg by mouth 2 (two) times a day. 07/04/2016 1 completed clopidogrel 75 mg tablet Take 1 tablet (75 mg total) by mouth daily. 09/12/2024 active fluticasone propionate 50 mcg/actuation nasal spray,suspension spray/apply 2 sprays in each nostril daily. 03/05/2013 6 completed aspirin 81 mg tablet,delayed release Take 1 tablet (81 mg total) by mouth daily. 04/05/2016 6 completed allopurinol 300 mg tablet active clopidogrel 75 mg tablet active atorvastatin 80 mg tablet Take 1 tablet (80 mg total) by mouth daily. 09/11/2024 active colchicine 0.6 mg tablet Take 1 tablet by mouth daily. 04/24/2021 1 completed amlodipine 5 mg tablet TAKE 1 TABLET BY MOUTH EVERY DAY DIRECTED 04/12/2016 6 completed metoprolol tartrate 25 mg tablet Take 0.5 tablets (12.5 mg total) by mouth 2 (two) times a day. 01/14/2017 1 completed atorvastatin 80 mg tablet active clobetasol 0.05 % scalp solution APPLY AND GENTLY MASSAGE INTO AFFECTED AREAS TWICE A DAY 07/26/2016 6 completed Problems Problem Status Onset Date Problem Type Date of Resoluti on Source Multi vessel coronary artery disease active 2017-03-23 Problem[address] [facility] Right hemiparesis active 2017-03-23 ProblemAct [facility] Foot-drop active 2015-05-29 ProblemAct [facility] A Chronic tophaceous gout active 2017-08-08 ProblemAct [facility] Chronic kidney disease stage 3 active 2020-05-01 ProblemAct [facility] Lumbar radiculopathy active 2015-05-29 ProblemAct [facility] History of coronary artery bypass grafting active 2016-07-28 ProblemAct [facility] Seborrheic dermatitis active 2015-05-29 ProblemAct [facility] Psoriasis active 2017-06-27 ProblemAct [facility] A Arthritis of left knee active 2019-03-28 ProblemAct [facility] Abnormal renal function active 2015-05-29 ProblemAct [facility] History of cerebrovascular accident with residual deficit active 2017-03-23 ProblemAct [facility] VIA Hypertensive disorder active 2015-05-29 ProblemAct [facility] Hyperlipidemia active 2015-05-29 ProblemAct [facility] Heart murmur active 2015-05-29 ProblemAct [facility] Abnormal gait active 2015-05-29 ProblemAct [facility] Immunizations Vaccine Date Source Lot Number Status SARS-COV-2 (COVID-19) vaccin e, mRNA, spike protein, LNP, preservative free, 30 mcg/0.3mL dose 03/12/2021 [facility] [id number] completed tetanus toxoid, reduced diph theria toxoid, and acellular pertussis vaccine, adsorbed 04/01/2017 [facility] completed tetanus and diphtheria toxoi ds, adsorbed, for adult use 04/01/2017 [facility] [id number] completed influenza, high dose seasona l, preservative-free 10/12/2020 [facility] [id number] completed pneumococcal conjugate vaccine, 13 valent 2019 [facility] [id number] completed SARS-COV-2 (COVID-19) vaccin e, mRNA, spike protein, LNP, preservative free, 30 mcg/0.3mL dose 02/19/2021 [id number] completed
--- OUTSIDE RECORDS SUMMARY | 2024-12-24 18:51 | XMS_ITS | Clinical Summary ---
Author Organization [facility] Address [address] [place] [address] Care Team Providers Care Economic Development Specialist Name Role Phone Unavailable Primary Care Provider Unavailabl e Medications Medication Sig Dispensed Refills Start Date End Date Status amLODIPine (NORVASC) 5 MG tabletIndications:Unsp ecified essential hypertension TAKE 1 TABLET BY MOUTH DAILY DIRECTED. 30 tablet 3 06/25/2015 Active Immunizations Name Administration Dates Next Due Covid-19 MRNA Vaccine - Pfiz er 12+ (Purple Cap) 10/13/2021,03/12/2021,02/19/2021 Social History Tobacco Use Types Packs/Day Years Used Date Smoking Tobacco: Never Assessed Sex and Gender Information Value Date Recorded Sex Assigned at Not on file Gender Identity Not on file Sexual Orientation Not on file Last Filed Vital Signs Vital Sign Reading Time Taken Comments Blood Pressure 128/62 02/06/2015 3:31 PM EDT Pulse 80 02/06/2015 3:31 PM EDT Temperature 36.9 ??C (98.5 ??F) 02/06/2015 3:31 PM ED T Respiratory Rate - - Oxygen Saturation - - Inhaled Oxygen Concentration - - Weight 74.4 kg (164 lb) 02/06/2015 3:31 PM EDT Height 175.3 cm (5' 9 ) 05/01/2012 2:56 PM EDT Body Mass Index 24.22 05/01/2012 2:56 PM EDT Plan of Treatment Health Maintenance Due Date Last Done Comments Hepatitis C Virus Screening 1950 DTaP/Tdap/Td Vaccines (1 - Tdap) 1968 Colonoscopy 1994 Pneumococcal Vaccines 50+ (1 of 1 - PCV) 1999 Zoster (Shingles) Vaccine (1 of 2) 1999 Influenza Vaccine 05/31/2024 10/12/2020 COVID-19 Vaccine (4 - 2023-2 5 season) 2024 10/13/2021, 03/12/2021, 02/19/2021 RSV Vaccine 60 years and older and Patients (1 - 1-dose 75+ series) 2024 Hepatitis B Vaccines Aged Out No long er eligible based on patient's age to complete this topic
--- OUTSIDE RECORDS SUMMARY | 2024-12-24 18:51 | XMS_ITS | Clinical Summary ---
Author Organization [facility] ity Address [address] [place] [address] Care Team Providers Care Water Attendant Name Role Phone Paulo Godfrey MD Primary Care Provider [phone] Allergies No known active allergies Medications allopurinoL (ZYLOPRIM) 300 mg tablet Take 1 tablet (300 mg total) by mouth daily. 2 Active atorvastatin (LIPITOR) 80 mg tablet Take 1 tablet (80 mg total) by mouth daily. 2 Active carvediloL (COREG) 12.5 mg tablet TAKE 1 TABLET BY MOUTH TWICE DAILY WITH MEALS 2 Active cholecalciferol (VITAMIN D-3) 25 mcg (1,000 unit) tablet Take 2 Tablets by mouth daily. 1 Active clobetasoL (TEMOVATE) 0.05 % ointment Apply topically 2 (two) times a day. 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 03/23/2017 Overview (11/26/2022): residual right sided weakness CAD, multiple vessel 03/23/2017 Overview (11/26/2022): CABG x 4 Acute blood loss anemia 07/01/2016 Acute kidney injury 07/01/2016 Lumbar radiculopathy 05/29/2015 Abnormal kidney function 05/29/2015 Adhesive capsulitis of shoulder 05/29/2015 Abnormal gait 05/29/2015 Cardiac murmur 05/29/2015 HLD (hyperlipidemia) 05/29/2015 BP (high blood pressure) 05/29/2015 Back ache 05/29/2015 [place] 05/29/2015 Leg weakness 05/29/2015 Cerebral thrombosis with cerebral infarction Immunizations Name Administration Dates Next Due Influenza trivalent, 0.5mL ( Fluzone High-dose) 65yo and older 10/12/2020 [employer] SARS-CoV-2 COVID-19, mRNA, LNP-S, preservative free 10/13/2021 Pneumococcal conjugate 13 [facility] (Prevnar 13, PCV13) 2mo and older 2019 Td Tetanus diptheria (Tdvax) 7yo and older 04/01 Tdap Tetanus diptheria acell ular pertussis (Boostrix; Adacel) 7yo and older 04/01/2017 Surgical History Surgery Date Site/Laterality Comments CORONARY ARTERY BYPASS GRAFT 07/01/2016 N/A PROCEDURE:CORONARY ARTERY BYPASS GRAFT;COMMENT:Procedure: CORONARY ARTERY BYPASS GRAFTING - ON PUMP; Surgeon: Graeme Miranda MD; Location: [facility] CARDIAC OPERATING ROOM; Service: Cardiovascular; Laterality: N/A; OTHER SURGICAL HISTORY 07/01/2016 N/A PROCEDURE:TRANSESOPHAGEAL ECHOCARDIOGRAM (BELL) (CONTRAST/3D PRN);COMMENT:Procedure: TRANSESOPHAGEAL ECHOCARDIOGRAPHY; Surgeon: Graeme Miranda MD; Location: [facility] CARDIAC OPERATING ROOM; Service: Cardiovascular; Laterality: N/A; CARDIAC CATHETERIZATION 06/29/2016 Right PROCEDURE:CARDIAC CATHETERIZATION;COMMENT:Proced ure: LEFT HEART CATHETERIZATION ? 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; Service: Cardiology; Laterality: Right; Medical History Medical History Date Comments Hypertension DX:Hypertension Hyperlipidemia DX:Hyperlipidemi a Stroke (CMS/HCC) DX:Stroke (HCC) Adhesive capsulitis of shoulder DX:Adhesive capsulitis of shoulder Shingles DX:Shingles Lumbar radiculopathy DX:Lumbar r adiculopathy Right foot drop DX:Right foot dr op Seborrheic dermatitis of scalp D X:Seborrheic dermatitis of scalp Gout DX:Gout Psoriasis DX:Psoriasis Rheumatoid arthritis (CMS/HCC) D X:Rheumatoid arthritis (HCC) Metabolic acidosis 07/01/2016 DX:Metabolic acidosis LBP (low back pain) 05/29/2015 DX:LBP (low back pain) Hypophosphatemia 07/01/2016 DX:Hypophosphat emia Hypocalcemia 07/01/2016 DX:Hypocalcemia Family History Medical History Relation Name Comments Hypertension Mother Relation Name Status Comments Mother Social History Tobacco Use Types Packs/Day Years Used Date Smoking Tobacco: Never Smokeless Tobacco: Never Alcohol Use Standard Drinks/Week Comments No 0 (1 standard drink = 0.6 oz pur e alcohol) Sex and Gender Information Value Date Recorded Sex Assigned at Not on file Legal Sex Male 10:19 PM EST Gender Identity Not on file Sexual Orientation Not on file Obstetrics History Last Filed Vital Signs Vital Sign Reading Time Taken Comments Blood Pressure 152/78 07/06/2023 11:44 AM EDT Pulse 74 07/06/2023 11:44 AM EDT Temperature - - Respiratory Rate - - Oxygen Saturation - - Inhaled Oxygen Concentration - - Weight 71.2 kg (157 lb) 07/06/2023 11:44 AM EDT Height 170.2 cm (5' 7 ) 07/06/2023 11:44 AM EDT Body Mass Index 24.59 07/06/2023 11:44 AM EDT Plan of Treatment Health Maintenance Due Date Last Done Comments Zoster Vaccines (1 of 2) 1999 Pneumococcal Vaccine: 50+ Years (2 of 2 - PPSV23) 2020 2019 Abdominal Aortic Aneurysm (AAA) Screen 10/08/2022 Hepatitis C Screening 10/08/2022 Medicare Annual Wellness Visit 10/08/2022 Social Influencers of Health Screening 10/08/2022 Colorectal Cancer Screening: Colonoscopy 12/15/2022 12/15/2012 Depression Screening 10/14/2023 10/14/2022 Falls Risk Assessment 10/14/2023 10/14/2022 Hypertension/CHF/CAD Annual BMP Blood Test 11/26/2023 11/26/2022, 10/05/2021 COVID-19 Vaccine (4 - 2023-2 5 season) 2024 10/13/2021, 03/12/2021, 02/19/2021 Influenza Vaccine (#1) 2024 10/12/2020 RSV Immunization Patients 60 + Years Old (1 - 1-dose 75+ series) 2024 DTaP,Tdap,and Td Vaccines (3 - Td or Tdap) 04/01/2027 04/01/2017, 04/01/2017 Cholesterol Screening (Lipid Panel) 10/17/2027 10/17/2022, 10/05/2021 HIB Vaccines Aged Out No longer eligi ble based on patient's age to complete this topic HPV Vaccines Aged Out No longer eligi ble based on patient's age to complete this topic Hepatitis A Vaccines Aged Out No long er eligible based on patient's age to complete this topic Hepatitis B Vaccines Aged Out No long er eligible based on patient's age to complete this topic IPV Vaccines Aged Out No longer eligi ble based on patient's age to complete this topic MMR Vaccines Aged Out No longer eligi ble based on patient's age to complete this topic Meningococcal ACWY Vaccine Aged Out N o longer eligible based on patient's age to complete this topic Meningococcal B Vacine Aged Out No lo nger eligible based on patient's age to complete this topic RSV Immunization Patients Under 20 months Aged Out No longer eligible b ased on patient's age to complete this topic Varicella Vaccines Aged Out No longer eligible based on patient's age to complete this topic Procedures Procedure Name Priority Date/Time Associated Diagnosis Comments ANNUAL BMP BLOOD TEST Routine 11/26/2022 LIPID PANEL Routine 10/17/2022 DEPRESSION SCREENING Routine 10/14/2022 FALLS RISK ASSESSMENT Routine 10/14/2022 COLONOSCOPY Routine 12/15/2012 from Last 3 Months or Most Recently Relevant to Health Maintenance Results * Annual BMP Blood Test (11/26/2022) Pathologist [facility] Annual BMP Blood Test abstracted [facility] Provider HEALTH MAINTENANCE Final Result * Lipid panel (10/17/2022) [facility] [address] LDL/HDL Ratio 2.5 <=5 Triglycerides 104 <=150 mg/dL Cholesterol 109 <=200 mg/dL HDL 44 >=40 mg/dL LDL Cholesterol 46 <=100 mg/dL Blood Venous blood specimen / Unknown Result [facility] Provider LAB BLOOD ORDERABLES Katherine l Result * Falls Risk Assessment (10/14/2022) [facility] [address] Falls Risk Assessment abstracted [facility] Provider HEALTH MAINTENANCE Final Result * Depression Screening (10/14/2022) Pathologist [facility] Depression Screening abstracted [facility] Provider HEALTH MAINTENANCE Final Result * Colonoscopy (12/15/2012) Pathologist [facility] Colonoscopy no interpretation , abstracted Anatomical Region Laterality Modality Other [facility] Provider HEALTH MAINTENANCE Final Result from Last 3 Months or Most Recently Relevant to Health Maintenance Care Teams Water Attendant Relationship Specialty Start Date End Date Paulo Godfrey MD PCP - General Internal Medicine 07/13/21
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
--- OUTSIDE RECORDS SUMMARY | 2024-12-24 18:51 | XMS_ITS | Encounter Summary ---
Author Organization [facility] Address [address] [place] [address] Care Team Providers Care Copywriting Intern Name Role Phone Unavailable Primary Care Provider Unavailabl e Reason for Visit * Reason Comments Medication Refill Encounter Details Date Type Department Care Team (Late st Contact Info) Description 11/16/[address] [address] Marie Sampson, [place] [address] [place] [address] [id number] Social History Tobacco Use Types Packs/Day Years Used Date Smoking Tobacco: Never Assessed Sex and Gender Information Value Date Recorded Sex Assigned at Not on file Gender Identity Not on file Sexual Orientation Not on file documented as of this encounter Plan of Treatment Not on file documented as of this encounter Visit Diagnoses Not on filedocumented in this encounter
[2024-12-24 19:13] VITALS: BP 121/70; PULSE 75; RESP 16; TEMP 36.8; O2SAT 98
[2024-12-24 19:27] VITALS: BP 121/70; PULSE 75; RESP 16; TEMP 36.8; O2SAT 98
== END 2024-12-24 19:27 | disposition home or self-care (01) ==
PROVIDERS: Emergency Provider Internal Medicine; PCP Hospitalist
DX: S01.311A Laceration without foreign body of right ear, initial encounter (principal); M54.2 Cervicalgia; R51.9 Headache, unspecified; I25.10 Atherosclerotic heart disease of native coronary artery without angina pectoris; W01.190A Fall on same level from slipping, tripping and stumbling with subsequent striking against furniture, initial encounter; Y93.89 Activity, other specified; Y92.003 Bedroom of unspecified non-institutional (private) residence as the place of occurrence of the external cause; Y99.8 Other external cause status; Z79.899 Other long term (current) drug therapy
CPT/HCPCS: 12051; 36415; 70450; 72125; 80053; 83735; 84484; 85025; 85610; 93005; 99284; J2004

== ENCOUNTER → 2024-12-24 17:02 | Outpatient (BNV) | payer MEDICARE, OTHER, SELFPAY | PROVIDERS: Emergency Provider Internal Medicine; PCP Hospitalist; Visit Provider Radiology Diagnostic Radiology | DX: M43.12 Spondylolisthesis, cervical region (principal); M47.892 Other spondylosis, cervical region; G23.8 Other specified degenerative diseases of basal ganglia; W19.XXXA Unspecified fall, initial encounter | CPT/HCPCS: 70450; 72125 ==

== ENCOUNTER → 2024-12-24 17:03 | Outpatient (BNV) | payer MEDICARE, SELFPAY | PROVIDERS: Emergency Provider Internal Medicine; PCP Hospitalist; Visit Provider Internal Medicine | DX: S01.311A Laceration without foreign body of right ear, initial encounter (principal); W19.XXXA Unspecified fall, initial encounter | CPT/HCPCS: 93010 ==